=== PATIENT | female | born 1960 | race Caucasian/White ===

== ENCOUNTER → 2017-05-13 | Outpatient (CLI) | payer BC ==
[~2017-05-13] MED LIST: DOBUTamine 250 MG in DEXTROSE 5% IN WATER 250 ML IV ONE
--- NOTE | 2017-05-13 19:05 | P.STRESS ---
- Stress Test Note Stress Test Results/Findings: Exam Performed: Exam Date: Reason for Exam: Height: 0 in Weight: 0 g Protocol: Stage: Duration of Exercise: Resting Heart Rate: Resting Blood Pressure: Maximum Achieved Heart Rate: Maximum Achieved Blood Pressure: 85% PMHR: 100% PMHR: METS: Technologist Comment: Stress Test Results/Findings: This is a 56-year-old female with history of hypertension, hypercholesterolemia , being evaluated for symptoms of palpitations. Baseline EKG showed a sinus rhythm with normal FL interval and QRS duration. Blood pressure at rest is 164/ 86 with a pulse rate of 62.. A standard dose of debridement was initiated at 10 mics and titrated to maximum of 30 mics, achieving a maximum heart rate of 144 with a peak blood pressure of 204/78. EKGs taken during exercise showed about half a millimeter upsloping ST depression in inferolateral leads. Patient did not explain to any chest pain. Echo data: Baseline echo images show normal wall motion and thickening. Echo images taken with a low dose and high dose dobutamine showed progressive augmentation of the wall motion and thickening in all the segments. Final impression: #1. Negative dobutamine stress test #2. Negative dobutamine stress echo
--- NOTE | 2017-05-16 17:52 | ECHOS ---
- Stress Test Note Stress Test Results/Findings: Exam Performed: Exam Date: Reason for Exam: Height: 0 in Weight: 0 g Protocol: Stage: Duration of Exercise: Resting Heart Rate: Resting Blood Pressure: Maximum Achieved Heart Rate: Maximum Achieved Blood Pressure: 85% PMHR: 100% PMHR: METS: Technologist Comment: Stress Test Results/Findings: This is a 56-year-old female with history of hypertension, hypercholesterolemia , being evaluated for symptoms of palpitations. Baseline EKG showed a sinus rhythm with normal AL interval and QRS duration. Blood pressure at rest is 164/ 86 with a pulse rate of 62.. A standard dose of debridement was initiated at 10 mics and titrated to maximum of 30 mics, achieving a maximum heart rate of 144 with a peak blood pressure of 204/78. EKGs taken during exercise showed about half a millimeter upsloping ST depression in inferolateral leads. Patient did not explain to any chest pain. Echo data: Baseline echo images show normal wall motion and thickening. Echo images taken with a low dose and high dose dobutamine showed progressive augmentation of the wall motion and thickening in all the segments. Final impression: #1. Negative dobutamine stress test #2. Negative dobutamine stress echo MTDD
== END | disposition home or self-care (01) ==
LOC: RADNMMAIN 09:48
PROVIDERS: ATTEND Family Medicine
DX: I10 Essential (primary) hypertension (principal)
CPT/HCPCS: 93017; 93350; J1250

== ENCOUNTER → 2022-08-03 | Outpatient (CLI) | payer BC | END | disposition home or self-care (01) | LOC: RADCTMAIN 16:01 | PROVIDERS: ATTEND Family Medicine | DX: Z53.9 Procedure and treatment not carried out, unspecified reason (principal) ==

== ENCOUNTER → 2022-10-05 | Outpatient (CLI) | payer BC ==
--- NOTE | 2022-10-05 20:23 | CT ---
EXAMINATION TYPE: CT heart w calcium score DATE OF EXAM: 10/05/2022 COMPARISON: None HISTORY: Screening for cardiovascular disorder. 213.9 CT DLP: 51.90 mGycm Automated exposure control for dose reduction was used. CT CALCIUM SCORING Coronary calcium is a marker for plaque (fatty deposits) in a blood vessel or atherosclerosis (harden ing of the arteries). The presence and amount of calcium detected in a coronary artery by the CT sca n, indicates the presence and amount of atherosclerotic plaque. These calcium deposits appear years before the development of heart disease symptoms such as chest pain and shortness of breath. A calcium score is computed for each of the coronary arteries based upon the volume and density of th e calcium deposits. This can be referred to as your calcified plaque burden. It does not correspond directly to the percentage of narrowing in the artery but does correlate with the severity of the un derlying coronary atherosclerosis. PROCEDURE TECHNIQUE - Prospective Gating was used. Slice thickness: 3mm. Density threshold (HU): 130, Pixel threshold: 3, Algorithm: discrete. RESULTS Region: LM Calcium Score ([place]): 0 Volume (mm3): 0 Mass (g): 0 Region: RCA Calcium Score ([place]): 0 Volume (mm3): 0 Mass (g): 0 Region: LAD Calcium Score ([place]): 109.5 Volume (mm3): 88.89 Mass (g): 29.63 Region: CX Calcium Score ([place]): 142.45 Volume (mm3): 109.87 Mass (g): 36.62 Region: PDA Calcium Score ([place]): 0 Volume (mm3): 0 Mass (g): 0 Total: Calcium Score ([place]): 251.95 Volume (mm3): 198.76 Mass (g): 66.25 TOTAL CALCIUM SCORE: 251.95 IMPRESSION: Calcium Score: 251.95 Implication: Definite, at least moderate atherosclerotic plaque. Risk of Coronary Artery Disease: Mild coronary artery disease highly likely, significant narrowings p ossible CALCIUM SCORE IMPLICATION RISK OF C ORONARY ARTERY DISEASE 0 No identifiable plaque Very low, generally less than 5% 1-10 Minimal identifiable plaque Very unlikely, less than 10% 11-100 Definite, at least mild atherosclerotic plaque Mild or m inimal coronary narrowings likely 101-400 Definite, at least moderate atherosclerotic plaque Mild coronary ar [place] disease highly likely, significant narrowing possible 401 or Higher Extensive atherosclerotic plaque High lik elihood of at least one significant coronary narrowing
== END | disposition home or self-care (01) ==
LOC: RADCTMAIN 15:59
PROVIDERS: ATTEND Family Medicine
DX: Z13.6 Encounter for screening for cardiovascular disorders (principal); Z82.49 Family history of ischemic heart disease and other diseases of the circulatory system
CPT/HCPCS: 75571